=== PATIENT | male | born 2005 | race Two or more races ===

== ENCOUNTER 2024-04-23 11:00 | Outpatient (RCR) | payer MEDICAID, SELFPAY ==
--- NOTE | 2024-04-16 11:03 | PT.ODAYNRPT ---
PT Outpatient Daily Note OP Daily Note Outpatient Physical Therapy Treatment Date: 04/16/24 Visit Reasons: Right shoulder pain Subjective: Pt reports R shoulder is healing well, no complaints. Objective: Please see flow sheet for ther ex list. Assessment: Added interventions completed with good tolerance indicating progress. Plan: Continue with POC. Length of Time (minutes) of Treatment: 30 Minutes Procedure Charges Therapeutic Exercise 30 minutes: Yes
--- NOTE | 2024-04-19 12:51 | PT.ODAYNRPT ---
PT Outpatient Daily Note OP Daily Note Outpatient Physical Therapy Treatment Date: 04/19/24 Visit Reasons: Right shoulder pain Subjective: Pt's shoulder feels good. Pt denies of pain lately and ROM continues to improve. Objective: Please see flow chart for list of ther ex performed Assessment: added more scapula strengthening exercises with good tolerance Plan: Continue with PT Length of Time (minutes) of Treatment: 30 Minutes Procedure Charges Therapeutic Exercise 30 minutes: Yes
--- NOTE | 2024-04-23 11:32 | PT.ODAYNRPT ---
PT Outpatient Daily Note OP Daily Note Outpatient Physical Therapy Treatment Date: 04/23/24 Visit Reasons: Right shoulder pain Subjective: No new complaints or concerns. Objective: Please see flow sheet for ther ex list. Assessment: Progressing strengthening as per post op protocol, no complaints. Plan: Continue with POC, progress strengthening per protocol. Length of Time (minutes) of Treatment: 30 Minutes Procedure Charges Therapeutic Exercise 30 minutes: Yes
== END 2024-05-11 23:59 | disposition home or self-care (01) ==
LOC: CPTX 11:00
PROVIDERS: PCP Orthopaedic Surgery; Referring Provider Orthopaedic Surgery; Visit Provider Orthopaedic Surgery
DX: M25.511 Pain in right shoulder (principal); R53.1 Weakness; S43.491D Other sprain of right shoulder joint, subsequent encounter; X58.XXXD Exposure to other specified factors, subsequent encounter
CPT/HCPCS: 97110

== ENCOUNTER 2024-05-21 09:57 | Outpatient (RCR) | payer MEDICAID, SELFPAY ==
--- NOTE | 2024-05-21 10:19 | PT.ODS1RPT ---
PT OP Progress/Discharge Note Date of Service: 05/21/24 Progress Note/DC Note Progress Note/Discharge Note: DC Note Patient Information Visit Reasons: Right shoulder pain Medical Diagnosis: [id number] Treatment Dx #1: Right Shoulder Pain Service Discharge Date: 05/21/24 Status Subjective: Pt's shoulder feels good and does not have any concerns. Pt has been able to resume ADLs, chores, light work out, and overhead motions. At this time Pt feels comfortable being release from care with exercises to continue at home. Objective: Right Shoulder AROM: all motions are WNL Right Shoulder MMTs: grossly 4/5 Right Scapula MMTs: grossly 4-/5 HBB AROM: Thumb at T7 Assessment: Pt demonstrate functional right shoulder mobility and strength allowing him to resume ADLs and recreational activities. At this time Pt will no longer benefit from physical therapy due to meeting all set goals in therapy. Pt was instructed on HEP last session and educated to continue exercises to maintain overall mobility. Pt performed all exercises safely, thank you for your referrals. Plan: D/C home with HEP and follow up with MD QURESHI Procedure Charges Therapeutic Exercise 30 minutes: Yes
== END 2024-06-11 23:59 | disposition home or self-care (01) ==
LOC: CPTX 09:57
PROVIDERS: PCP Orthopaedic Surgery; Referring Provider Orthopaedic Surgery; Visit Provider Orthopaedic Surgery
DX: M25.511 Pain in right shoulder (principal); R53.1 Weakness; S43.491D Other sprain of right shoulder joint, subsequent encounter; X58.XXXD Exposure to other specified factors, subsequent encounter
CPT/HCPCS: 97110